=== PATIENT | female | born 1945 | race Asian ===

== ENCOUNTER 2019-05-13 11:31 | Day surgery (SDC) | payer MEDICARE, OTHER ==
[~2019-05-13] VITALS: Ht 157.5 cm; Wt 46.6 kg
[~2019-05-13 11:31] MED LIST: WARF2.5 PO
[2019-05-13] MEDS ORDERED: ELIQUIS5 M2 (12:04)
--- NOTE | 2019-05-13 12:09 | NUR ---
05/13/19 [facility] Stephanie Stallworth 1ST ATTEMPT INFLATRATED IN AC
== END 2019-05-13 13:34 | disposition home or self-care (01) ==
LOC: ORSCSDS 11:31
PROVIDERS: Internal Medicine Gastroenterology
PROC: 0DBH8ZX Excision of Cecum, Via Natural or Artificial Opening Endoscopic, Diagnostic (ICD-10-PCS; principal; 2019-05-13 13:00)
PROC: 0DBK8ZX Excision of Ascending Colon, Via Natural or Artificial Opening Endoscopic, Diagnostic (ICD-10-PCS; principal; 2019-05-13 13:00)
DX: Z12.11 Encounter for screening for malignant neoplasm of colon (principal); Z86.010 Personal history of colon polyps; D12.0 Benign neoplasm of cecum; D37.4 Neoplasm of uncertain behavior of colon; K57.30 Diverticulosis of large intestine without perforation or abscess without bleeding; Z95.0 Presence of cardiac pacemaker; K64.8 Other hemorrhoids; E78.5 Hyperlipidemia, unspecified; K21.9 Gastro-esophageal reflux disease without esophagitis; Z79.01 Long term (current) use of anticoagulants; Z79.899 Other long term (current) drug therapy
CPT/HCPCS: 88305; J2704; J7120

== ENCOUNTER 2023-10-22 09:53 | Day surgery (SDC) | payer MEDICARE, OTHER ==
[2023-10-22] VITALS (18 sets, daily range): BP systolic 112–159; BP diastolic 61–90
[~2023-10-22] VITALS: Ht 157.5 cm; Wt 47.6 kg
[~2023-10-22 09:53] MED LIST changes: +CALTRATE PO; +ELIQUIS5 M2; +FLUORIDE 1.1% TOP; +METO25ER PO; +MIRALAX PO; +THERAGRAN PO; +Tambocor100 MG PO; +[UNRECOGNIZED DRUG - CODE] PO; +[UNRECOGNIZED DRUG - OTHER] PO
[2023-10-22] MEDS ORDERED: NS 1,000 ML IV ONE (10:11)
[2023-10-22] MEDS ORDERED: Benzocaine Oral Spray 0.5ML UD ONE (10:13)
[2023-10-22] MEDS ORDERED: LUTEIN/ZEAXANTHIN PO (10:27)
[2023-10-22] MEDS ORDERED: propofoL 20 ML IV ONE ×2 (10:51→10:52)
[2023-10-22] MEDS ORDERED: Ondansetron HCl 2 MG / ML 2ML Vial ONE (10:55)
--- NOTE | 2023-10-22 11:45 | NUR ---
PT TOLERATED KENROY WELL. CALL LIGHT IN REACH. PT'S IN ROOM.
--- NOTE | 2023-10-22 12:19 | NUR ---
PT VERBALIZES UNDERSTANDING WRITTEN AND VERBAL INSTRUCTIONS. DENIES QUESTIONS. PT IV DC'D. CATH INTACT. PRESSURE DSG IN PLACE. NO BLEEDING NOTED. PT DC TO HOME VIA WC BY S/O.
== END 2023-10-22 13:00 | disposition home or self-care (01) ==
LOC: MHTC 09:53
DX: I08.3 Combined rheumatic disorders of mitral, aortic and tricuspid valves (principal); I48.0 Paroxysmal atrial fibrillation; I49.5 Sick sinus syndrome; E78.5 Hyperlipidemia, unspecified; Z95.0 Presence of cardiac pacemaker
CPT/HCPCS: 93312; 93325; A9270; J2405; J2704; J7030

== ENCOUNTER → 2024-09-10 | Outpatient (CLI) | payer MEDICARE, OTHER ==
[~2024-09-10] MED LIST changes: +LUTEIN/ZEAXANTHIN PO
[2024-09-10 10:35] LABS: BASOPHILS ABSOLUTE AUTO 0.01 K/mm3 (0.00-0.23); BASOPHILS PERCENT AUTO 0 % (0-2); EOSINOPHILS ABSOLUTE AUTO 0.11 K/mm3 (0.00-0.68); EOSINOPHILS PERCENT AUTO 2 % (0-6); Hematocrit 37.6 % (33.0-51.0); Hemoglobin 12.6 g/dL (11.5-16.0); IMMATURE GRAN ABSOLUTE AUTO 0.02 K/mm3 (0.00-0.10); IMMATURE GRAN PERCENT AUTO 0 % (0-1); LYMPHOCYTES ABSOLUTE AUTO 0.95 K/mm3 (0.84-5.20); LYMPHOCYTES PERCENT AUTO 16 % (21-46); MONOCYTES ABSOLUTE AUTO 0.53 K/mm3 (0.16-1.47); MONOCYTES PERCENT AUTO 9 % (4-13); Mean Corpuscular HGB 34.2 pg (26.0-34.0); Mean Corpuscular HGB Conc 33.5 g/dL (31.5-36.5); Mean Corpuscular Volume 102 fL (80-100); Mean Platelet Volume 9.3 fL (9.1-12.4); NEUTROPHILS ABSOLUTE AUTO 4.23 K/mm3 (1.96-9.15); NEUTROPHILS PERCENT AUTO 72 % (41-73); Platelet Count 208 K/mm3 (150-400); RDW Coefficient Variation 12.5 % (11.7-14.2); RDW Standard Deviation 47.2 fL (35.1-46.3); Red Blood Cell Count 3.68 M/mm3 (3.80-5.20); White Blood Cell Count 5.85 K/mm3 (4.00-11.30)
[2024-09-10 10:46] LABS: Albumin, Blood 3.8 g/dL (3.4-5.0); Albumin/Globulin Ratio 0.8 (0.8-1.8); Bilirubin, Total 0.6 mg/dL (0.1-1.0); Bun/Creatinine Ratio 15.7 (12.0-20.0); Calcium, Blood 8.9 mg/dL (8.5-10.1); Creatinine, Blood 1.02 mg/dL (0.40-1.00); Globulin, Blood 4.5 g/dL (2.2-4.0); Potassium, Blood 4.1 mmol/L (3.5-5.5); Total Protein, Blood 8.3 g/dL (6.4-8.2)
== END ==
LOC: LAB 10:31 → LAB SHORT 10:31
PROVIDERS: Physician Assistant Surgical
DX: R10.31 Right lower quadrant pain (principal)
CPT/HCPCS: 80053; 85025